=== PATIENT | female | born 1955 | race Caucasian/White ===

== ENCOUNTER 2017-01-03 13:48 | Emergency (ER) | payer OTHER ==
[~2017-01-03] VITALS: Ht 152.4 cm; Wt 49.2 kg
[2017-01-03] MEDS ORDERED: GABAPENTIN800 MG PO (15:27)
[2017-01-03] MEDS ORDERED: KLONOPIN1 MG PO ×2 (15:27→16:43)
[2017-01-03] MEDS ORDERED: ACCUTREND CHOL1 EAC1 (15:30)
[2017-01-03] MEDS ORDERED: CHOLESTEROL MED (15:30)
[2017-01-03] MEDS ORDERED: SLEEPING PILL (15:31)
[2017-01-03] MEDS ORDERED: RESTORIL30 MG PO (16:44)
[2017-01-03 16:59] VITALS: BP 121/64
== END 2017-01-03 17:42 | disposition home or self-care (01) ==
LOC: EME 13:48 → EDBD 13:48 → EME 17:42
DX: Z76.0 Encounter for issue of repeat prescription (principal); F41.9 Anxiety disorder, unspecified; M79.7 Fibromyalgia; M54.40 Lumbago with sciatica, unspecified side
CPT/HCPCS: 99281; 99283

== ENCOUNTER 2017-06-11 08:30 | Emergency (ER) | payer OTHER ==
[~2017-06-11] VITALS: Ht 152.4 cm; Wt 41.0 kg
[~2017-06-11 08:30] MED LIST: ACCUTREND CHOL1 EAC1; CHOLESTEROL MED; GABAPENTIN800 MG PO; KLONOPIN1 MG PO; RESTORIL30 MG PO; SLEEPING PILL
[2017-06-11] MEDS ORDERED: GABAPENTIN800 MG PO (10:16)
[2017-06-11 11:21] VITALS: BP 101/76
== END 2017-06-11 11:23 | disposition home or self-care (01) ==
LOC: EME 08:30
DX: M54.42 Lumbago with sciatica, left side (principal); F17.200 Nicotine dependence, unspecified, uncomplicated; Z88.6 Allergy status to analgesic agent
CPT/HCPCS: 99281; 99284